=== PATIENT | female | born 1975 | race Two or more races ===

== ENCOUNTER 2024-02-14 17:06 | Emergency (ER) | payer OTHER ==
[~2024-02-14] VITALS: Ht 167.6 cm; Wt 81.6 kg
[2024-02-14] MEDS: KETOROLAC TROMETHAMINE 15 MG/ML VIAL IV ONE (17:30)
[2024-02-14] MEDS ORDERED: HYDROMORPHONE 1 MG/1 ML DISP.SYRIN ONE (17:40)
[2024-02-14] MEDS: IV NS 0.9% 1,000 ML BAG IV ONE (18:19)
[2024-02-14] MEDS: HYDROMORPHONE 1 MG/1 ML DISP.SYRIN IV ONE (18:20)
[2024-02-14] MEDS ORDERED: HYDR-4275 PO (18:41)
[2024-02-14] MEDS ORDERED: HYDR-3972 PO (18:47)
[2024-02-14 18:56] VITALS: BP 140/70; TEMP 98.7; O2SAT 100
== END 2024-02-14 18:58 | disposition home or self-care (01) ==
LOC: ER 17:10
DX: M54.41 Lumbago with sciatica, right side (principal)
CPT/HCPCS: 99283; 96374; 96361; J7030; J1171